=== PATIENT | female | born 1985 | race Caucasian/White ===

== ENCOUNTER 2016-11-30 17:00 | Inpatient (IN) | payer OTHER ==
--- NOTE | ~2016-11-30 | PA ---
Unit #: [id number] #: [id number] Patient: VANCE SHARPE [id number] [place] [address] [id number] I MR#: [id number] NAME: VANCE SHARPE ROOM: P131 Age: 31 Sex: F Admission Date: 11/30/2016 : 1985 Date of Assessment: 11/30/2016 Attending Physician: Lucero Ladd M.D. Admitting Physician: Lucero Ladd M.D. Primary Care Physician: Primary Care Physician No PSYCHIATRIC ASSESSMENT DATE OF SERVICE 11/30/2016. IDENTIFYING DATA Ms. Sharpe is a 31-year-old, single, white female, who is a resident of [place], [place], and was brought to the hospital in an acute psychotic and agitated state. CHIEF COMPLAINT "Somebody stole my medicines." HISTORY OF PRESENT ILLNESS Ms. Sharpe is a 31-year-old, single, white female with a history of mood disorder and substance abuse, who is known to me from previous encounter as she was active under my care back in 07/2015 and at that time it was also noted that she has been going and seeing Dr. Jaden Lundberg on an outpatient basis and has been getting a combination of Adderall and Klonopin and using these drugs from the street and had an acute psychotic break and was taken off all those medications and recommendation were made for the patient not to be prescribed those current medication due to her extensive substance abuse history and addictive potential of the medication leading to acute psychotic state. However, it appears that she has been going back to Dr. Lundberg again and has been back on those medications and has been on a cocktail of Klonopin, Adderall and Neurontin, and it was noticed that she takes excessive amount of Adderall, which was prescribed to her above and beyond the maximum, even though she does not have a job or school and she gets 60 mg of Adderall b.i.d. with a total of 120 mg of Adderall, which was quite high that I have seen in some time and she also gets Klonopin which she states she takes 2 mg of Klonopin 4 times a day with a total of 8 mg a day which is above and beyond what normally is prescribing probably and is effectively leading to patient's brain chemistry to be disturbed where she presented with acute psychotic and agitated state and was almost impossible to move her from that intake to the unit due to extreme paranoia and delusional behavior and code had to be called and she came into the unit, and I had to give her injection of Geodon and then again Benadryl to the extreme agitation and aggression and she still ended up in seclusion and later on restraints and was unable to carry on any meaningful conversation, appeared to be completely out of touch with reality and was giving me different stories that was not making sense including that her brother is running from police and he was staying at some friend's house and he called and asked for some food, and she was trying to deliver him some food and she saw a couple of men in her car and the phone lights were on and her brother was Unit #: [id number] #: [id number] Patient: VANCE SHARPE yelling her name and he approached the car and found out that they were stealing her medications and it appears that she has been carrying her pill bottles in the car; however, her story was completely out of touch with reality and she was seen to be agitated, aggressive, hostile, paranoid, delusional and as such, recommendation for inpatient level of care for safety and stabilization was made and the patient was transferred to us. SUBSTANCE ABUSE HISTORY The patient reports history of experimentation with benzodiazepines, meth and opioids. PAST PSYCHIATRIC HISTORY The patient has had a history of inpatient and outpatient psychiatric treatments, has been diagnosed and treated for bipolar disorder. Review of the medical records indicate that she was supposed to be on a combination of Prozac, Zyprexa and Wellbutrin, but also has been getting excessive amounts of Adderall and Klonopin from Dr. Lundberg on an outpatient basis. PAST MEDICAL HISTORY No acute or chronic medical illnesses. ALLERGIES No known medication allergies. PERSONAL AND SOCIAL HISTORY A 31-year-old white female, who reports that she is single, unemployed, and lives with different friends and family members and has fairly decent social support system. MENTAL STATUS EXAMINATION Young white female, who was casually dressed with fair personal hygiene, appears to be in no acute distress or discomfort. She was awake and alert on interaction with intact orientation to time, place, and person. Her mood was anxious and depressed with congruent affect. Her speech was slow and restricted in content. Her thought processes were disorganized with some looseness of associations and flight of ideas. Her insight and judgment remain significantly impaired. DIAGNOSTIC IMPRESSION Psychiatric: Bipolar disorder, most recent episode depressed, recurrent, moderate, without psychotic features; methamphetamine dependence, moderate; benzodiazepine dependence, moderate; opioid abuse, moderate. Medical: None. Stressors: Moderate psychosocial stressors. TREATMENT PLAN 1. The patient has presented with a history of substance abuse and mood disorder, and really concerned with Dr. Jaden Lundberg's prescription habit, particularly giving her 120 mg of Adderall which is really medically inappropriate, if not on the border or being unethical and then mixing it with benzodiazepine and giving a huge amount of benzodiazepine of Klonopin 2 mg q.i.d., which was just going to take away functional ability of the patient, not to mention that there is no point in mixing an upper with a downer and giving Adderall as a meth related compound to Unit #: [id number] #: [id number] Patient: VANCE SHARPE stimulate the brain and help someone be awake and alert and focus and concentrate believing that they have symptoms of ADHD and then at the same time, giving a downer, particularly a strong one, in the form of Klonopin and giving huge amount of q.i.d., which is going to act completely opposite to methamphetamine and it is effectively over messing up her brain chemistry and it appears that she is getting more pills that are controlled from the from a doctor than she can get it from a drug dealer and that she has been carrying them around and making statement that they are getting stolen and have a feeling that she might be getting the prescriptions run out filled before time and it has been leading to inpatient psychiatric hospitalization where she presented with acute psychotic and agitated state and then we have to clean up that mess of taking her off that huge amount of Klonopin and Adderall and once she is detoxed and cleaned, Dr. Jaden Lundberg will put her right back on those and it has been leading to very poor outcome and as such, we will document that we will be taking her off Adderall and Klonopin under medical supervision and making sure that she has a clean brain chemistry and she responds to her bipolar medications, particularly her Zyprexa, Wellbutrin and Prozac and we will strongly recommend that Dr. Jaden Lundberg should refrain from this habit of prescribing huge amounts of controlled substance, which has been detrimental to the patient's mental and physical health and is putting her and others in significant danger. 2. Supportive therapy was provided to the patient. ESTIMATED LENGTH OF STAY 5 to 7 days. ABILITY TO HELP SELF Limited. WILLINGNESS TO HELP SELF The patient appears to be willing to help self. STRENGTHS 1. Communicative. 2. Cooperative. PROBLEMS 1. Chronic dysphoric symptoms. 2. Poor social support system. DISCHARGE CRITERIA This will be contingent upon the patient's ability to show resolution of her depression and anxiety and her ability to stay safe to herself, particularly after discharge from the hospital. Dictated by... Gonzalo Mclaughlin/mert TD: 12/02/2016 02:57 JOB #: [id number] Unit #: [id number] #: [id number] Patient: VANCE SHARPE PSYCHIATRIC ASSESSMENT Page 1 of 1 X Lucero Ladd MD X PSYCHIATRIC ASSESSMENT
--- NOTE | ~2016-11-30 | PN ---
Unit #: [id number] #: [id number] Patient: VANCE SHARPE [id number] [facility] [address] [place] [address] [id number] I MR#: [id number] NAME: VANCE SHARPE ROOM: P131 Age: 31 Sex: F Admission Date: 11/30/2016 : 1985 Attending Physician: Lucero Ladd M.D. Admitting Physician: Lucero Ladd M.D. Primary Care Physician: Primary Care Physician Sweetie BERGER PROGRESS NOTES DATE December 01, 2016 DISCUSSION Ms. Sharpe is a 31-year-old white female, who was seen today and chart was reviewed and the case was discussed with the staff. She remains agitated and irritable, and had a very rough night last night, with hostility, delusional behavior, and psychosis, and ended up in seclusion restraints and p.r.n. injection was given, but she still has been wondering around in the hallway and has been demanding to leave and stating that she does not know why she is here, and continues to demand discharge. However, she appears to be fighting treatment and is worse at this time and as such the patient has been maintained along with her current level of precautions, and the patient has been encouraged to comply and participate in the treatment and activities and as such we are continuing to monitor her response to treatment and interventions and will make further adjustments as needed. Dictated by... Gonzalo Mclaughlin/wendy TD: 12/02/2016 11:00 JOB #: [id number] [facility] PROGRESS NOTES Page 1 of 1 X Lucero Ladd MD PROGRESS NOTE
--- NOTE | ~2016-11-30 | DS ---
Unit #: [id number] #: [id number] [facility]: [facility] [id number] [facility] [address] [place] [address] [id number] I MR#: [id number] NAME: VANCE SHARPE ROOM: P131 Age: 31 Sex: F Admission Date: 11/30/2016 : 1985 Discharge Date: 12/03/2016 Attending Physician: Lucero Ladd M.D. Primary Care Physician: Primary Care Physician No DISCHARGE SUMMARY IDENTIFYING DATA Ms. Sharpe is a 31-year-old single white female, who is a resident of [place], [place], and was brought to the hospital in acute psychotic and agitated state. DISCHARGE DIAGNOSES Psychiatric: Bipolar disorder, most recent episode depressed, recurrent, moderate, without psychotic features; methamphetamine dependence, moderate; benzodiazepine dependence, moderate; opioid dependence, moderate. Medical: None. Stressors: Moderate psychosocial stressors. HISTORY OF PRESENT ILLNESS Please see initial psychiatric evaluation for details. PAST PSYCHIATRIC HISTORY Please see initial psychiatric evaluation for details. PAST MEDICAL HISTORY Please see initial psychiatric evaluation for details. HOSPITAL COURSE The patient was admitted to the adult psychiatric unit at [facility] and was oriented to the hospital environment. Routine p.r.n. medications were initiated, and upon presentation, the patient was seen to be acutely psychotic, agitated, hostile, aggressive, and ended up in seclusion and restraints, p.r.n. medications were given, and the patient spent several hours in restraints; however, it was noticed that she once again has started going back to Dr. Jaden Lundberg who has started prescribing her Adderall and Klonopin, even though during previous hospitalization she was taken off that and was recommended that she should stay away from those drugs history of chemical dependency and she was having acute psychosis; however, it appears that she has been getting a huge amount of Adderall as she is getting 120 mg of Adderall day and on top of that, she has been getting 8 mg of Klonopin a day and as such, has been having affective disturbance in brain chemistry leading to acute psychosis and agitation and once again, Adderall and Klonopin were discontinued and Zyprexa and Prozac and Wellbutrin were maintained and she was closely monitored. She was able to calm down significantly and was on a 72 hours hold. Once that , she did not want to stay in the program and was denying any suicidal ideations, intent, or plan and therefore, it was decided that she will be discharged home and will continue treatment on an outpatient basis. Once again, strong recommendation will be made for the patient to either not to follow up Unit #: [id number] #: [id number] Patient: SHARPEVANCEORY with Dr. Jaden Lundberg or for him not to start prescribing those medications as they have led to affective decompensation and acute psychosis and agitation and the patient relapsing and acute psychosis and ending up in an acute psychiatric unit. However, I am not sure if Dr. Lundberg would stop giving her those medication as it has been atypical pattern of prescription habit, but that particular physician several patients coming to my care on both with similar cocktail of benzodiazepine and Adderall. DISCHARGE CONDITION Stable. PROGNOSIS Guarded. Dictated by... Gonzalo Mclaughlin/mert TD: 12/03/2016 07:10 JOB #: [id number] DISCHARGE SUMMARY Page 1 of 1 X Luecro Ladd MD X DISCHARGE SUMMARY
--- NOTE | ~2016-11-30 | PN ---
Unit #: [id number] #: [id number] Patient: VANCE SHARPE [id number] [facility] [address] [place] [address] [id number] I MR#: [id number] NAME: VANCE SHARPE ROOM: P131 Age: 31 Sex: F Admission Date: 11/30/2016 : 1985 Attending Physician: Lucero Ladd M.D. Admitting Physician: Lucero Ladd M.D. Primary Care Physician: Primary Care Physician Sweetie COTTO NOTES DATE OF SERVICE: 12/02/2016 SUBJECTIVE Ms. Sharpe is a 31-year-old white female with mood disorder and substance abuse, who was seen today and chart was reviewed and the case was discussed with the staff. She remains anxious, withdrawn, disorganized with bizarre behavior and thought blocking and paranoia. She stares and then unable to utter much words or sentences and then she shows some emotional instability and she had been screaming and cursing. Meanwhile, she has been taking the medications and tolerating them fairly well. MENTAL STATUS EXAMINATION Young white female who was casually dressed with fair personal hygiene, appears to be in no acute distress or discomfort. She was awake and alert with impaired attention and concentration. Her mood was anxious with a congruent affect. She denies any suicidal or homicidal ideations. Her insight and judgment remain slightly impaired. TREATMENT PLAN 1. We will continue her on her current medications and treatment protocol. We will monitor her response to the medications and make further adjustments as needed. 2. We will continue to follow up. Dictated by... Gonzalo Mclaughlin/mert TD: 12/02/2016 20:01 JOB #: [id number] Unit #: [id number] #: [id number] Patient: VANCE SHARPE [facility] PROGRESS NOTES Page 1 of 1 X Lucero Ladd MD PROGRESS NOTE
--- NOTE | ~2016-11-30 | HP ---
Unit #: [id number] #: [id number] Patient: VANCE LAZARO [id number] [place] [address] [id number] I MR#: [id number] NAME: VANCE LAZARO ROOM: P131 Age: 31 Sex: F Admission Date: 11/30/2016 : 1985 Attending Physician: Lucero Ladd M.D. Admitting Physician: Lucero Ladd M.D. Primary Care Physician: Primary Care Physician No HISTORY AND PHYSICAL HISTORY OF PRESENT ILLNESS The patient is a 31-year-old female admitted to [address] [place] [address] on 11/30/2016 for psychosis. PAST MEDICAL HISTORY The patient denies. PAST SURGICAL HISTORY times two. SOCIAL HISTORY She disabled. She smokes one to two packs of cigarettes per day. She has a history of polysubstance abuse but none in six months. FAMILY MEDICAL HISTORY Noncontributory. ALLERGIES No known drug allergies. CURRENT MEDICATIONS Prozac, Zyprexa, Wellbutrin, Adderall, Neurontin and clonazepam. REVIEW OF SYSTEMS CONSTITUTIONAL: No fever or chills. HEENT: Denies any sore throat, ear pain or runny nose. CARDIOVASCULAR: Denies chest pain, irregular heart rhythm or palpitations. CHEST: Denies shortness of breath or cough. No hemoptysis. GASTROINTESTINAL: Denies nausea, vomiting, diarrhea or chronic constipation. ENDOCRINE: Denies history of increased thirst or urination. No recent significant weight loss or gain. GENITOURINARY: Denies dysuria, frequency, or hematuria. SKIN: Denies any rashes. HEMATOLOGIC: Denies history of increased bleeding or bruising. MUSCULOSKELETAL: Denies any hot, swollen joints. No generalized muscle pain. NEUROLOGIC: Denies problems with vision or speech. No frequent, severe headaches. No numbness, tingling or weakness in any extremities. Denies loss of bladder or bowel control. PHYSICAL EXAM Unit #: [id number] #: [id number] Patient: VANCE LAZARO GENERAL: She is awake, alert and oriented in no acute distress. VITAL SIGNS: Temperature 97.5, heart rate 100, respiration 16, blood pressure 108/66. HEIGHT: 5'3". WEIGHT: 120 pounds. I was unable to complete the rest of the physical exam because when I went to start the exam the patient ran down the hallway. IMPRESSION 1. Psychiatric admission. 2. Nicotine dependence. RECOMMENDATIONS Psychiatric per psychiatrist. MEDICAL: No contraindication to participate in facility activities. MEDICAL PROGNOSIS Good. MEDICAL CONDITION Stable. Dictated by... Lit Ambrocio/ashlee TD: 12/02/2016 02:23 JOB #: [id number] HISTORY AND PHYSICAL Page 1 of 1 X AWILDA RODRIGUEZ APRN X HISTORY AND PHYSICAL
== END 2016-12-03 11:40 | DRG 885 ==
LOC: P1S 17:46
DX: F31.32 Bipolar disorder, current episode depressed, moderate (principal); F13.20 Sedative, hypnotic or anxiolytic dependence, uncomplicated; F15.20 Other stimulant dependence, uncomplicated; F11.10 Opioid abuse, uncomplicated; F17.210 Nicotine dependence, cigarettes, uncomplicated
CPT/HCPCS: J1200; J3486

== ENCOUNTER 2017-01-10 14:54 | Inpatient (IN) | payer OTHER ==
[~2017-01-10] VITALS: Ht 165.1 cm; Wt 59.9 kg
--- NOTE | ~2017-01-10 | HP ---
Unit #: [id number] #: [id number] Patient: VANCE LAZARO [id number] [place] [address] [id number] I MR#: [id number] NAME: VANCE LAZARO ROOM: P254 Age: 31 Sex: F Admission Date: 01/10/2017 : 1985 Attending Physician: Lucero Ladd M.D. Admitting Physician: Lucero Ladd M.D. Primary Care Physician: Generic Doctor Not In System HISTORY AND PHYSICAL HISTORY OF PRESENT ILLNESS The patient is a 31-year-old female admitted to [address] [place] [address] on 01/10/2017 for psychosis. PAST MEDICAL HISTORY Degenerative disk disease. PAST SURGICAL HISTORY C-sections x2. SOCIAL HISTORY She is unemployed. She is disabled. She lives with her fiance. Denies alcohol, tobacco, and drug use. FAMILY MEDICAL HISTORY Noncontributory. ALLERGIES No known drug allergies. CURRENT MEDICATIONS Zyprexa, Wellbutrin, Prozac, Klonopin, Adderall, Neurontin, and Trileptal. REVIEW OF SYSTEMS CONSTITUTIONAL: No fever or chills. HEENT: Denies any sore throat, ear pain or runny nose. CARDIOVASCULAR: Denies chest pain, irregular heart rhythm or palpitations. CHEST: Denies shortness of breath or cough. No hemoptysis. GASTROINTESTINAL: Denies nausea, vomiting, diarrhea or chronic constipation. ENDOCRINE: Denies history of increased thirst or urination. No recent significant weight loss or gain. GENITOURINARY: Denies dysuria, frequency, or hematuria. SKIN: Denies any rashes. HEMATOLOGIC: Denies history of increased bleeding or bruising. MUSCULOSKELETAL: Denies any hot, swollen joints. No generalized muscle pain. NEUROLOGIC: Denies problems with vision or speech. No frequent, severe headaches. No numbness, tingling or weakness in any extremities. Denies loss of bladder or bowel control. PHYSICAL EXAMINATION GENERAL: She is awake, alert, and oriented in no acute distress. Unit #: [id number] #: [id number] Patient: VANCE LAZARO VITAL SIGNS: Temperature 99.0, heart rate 91, respirations 18, blood pressure 115/71. HEIGHT: 5 feet 5. WEIGHT: 132 pounds. SKIN: Warm and dry without rash or lesion. HEENT: Normocephalic. TMs not viewed. Oral and nasal passages clear. Conjunctivae clear. PERRLA. EOMs intact. NECK: Supple without lymphadenopathy or thyromegaly. HEART: Regular rate and rhythm without murmur. LUNGS: Clear. ABDOMEN: Soft, nontender. : Not done. EXTREMITIES: No evidence of cyanosis, clubbing or edema. Moves all without focal deficit. NEUROLOGICAL: Grossly within normal limits. Cranial Nerves: II: Visual navarrete are intact. III, IV AND : Extraocular movements are intact. Pupils are equal, round and reactive to light. V: Facial sensation is grossly normal. VII: Facial movements and expression are normal. VIII: Auditory acuity grossly intact. IX, X: Uvula is midline. Phonation is normal. XI: Patient shrugs shoulders and turns head normally. XII: Tongue protrudes in the midline. Sensory and Motor Function: Sensory and motor sensation is grossly normal. Motor: moves all extremities well. IMPRESSION 1. Psychiatric admission. 2. Degenerative disk disease. RECOMMENDATIONS PSYCHIATRIC: Per psychiatrist. MEDICAL: No contraindication to participate in this facility activities. MEDICAL PROGNOSIS Good. MEDICAL CONDITION Stable. Dictated by... Lit Ambrocio TD: 01/11/2017 16:00 JOB #: [id number] Unit #: [id number] #: [id number] Patient: PAT LAZAROI BUSTER HISTORY AND PHYSICAL Page 1 of 1 X AWILDA RODRIGUEZ APRN HISTORY AND PHYSICAL
--- NOTE | ~2017-01-10 | DS ---
Unit #: [id number] #: [id number] [facility] [id number] [facility] [address] [place] [address] [id number] I MR#: [id number] NAME: VANCE SHARPE ROOM: P254 Age: 31 Sex: F Admission Date: 01/10/2017 : 1985 Discharge Date: 01/14/2017 Attending Physician: Lucero Ladd M.D. Primary Care Physician: Generic Doctor Not In System DISCHARGE SUMMARY IDENTIFYING DATA Ms. Sharpe is a 31-year-old single white female, who is a resident of [place], [place], and is known to us from previous encounter, was transferred to us from [facility]. DISCHARGE DIAGNOSES Psychiatric: Bipolar disorder, most recent episode depressed, recurrent, moderate, with psychosis; benzodiazepine abuse, moderate; amphetamine abuse, moderate. Medical: None. Stressors: Moderate psychosocial stressors. HISTORY OF PRESENT ILLNESS Please see initial psychiatric evaluation for details. PAST PSYCHIATRIC HISTORY Please see initial psychiatric evaluation for details. PAST MEDICAL HISTORY Please see initial psychiatric evaluation for details. HOSPITAL COURSE The patient was admitted to the adult psychiatric unit at [facility] and was oriented to the hospital environment. Routine p.r.n. medications were initiated, and she was started back on her home medications and Wellbutrin and Zyprexa were maintained for depressive symptoms and she was closely monitored. She was taking the medications regularly and was tolerating them fairly well and was able to show a decent and therapeutic response with improvement in depression and anxiety and was willing to continue treatment on an outpatient basis and as such, it was decided that she will be discharged home and will continue treatment on an outpatient basis. DISCHARGE MEDICATIONS Trileptal 300 mg b.i.d. for bipolar, Wellbutrin XL 300 mg in the morning for depression, Zyprexa 20 mg a day for bipolar. DISCHARGE CONDITION Stable. PROGNOSIS Fair. Unit #: [id number] #: [id number] Patient: VANCE SHARPE Dictated by... Gonzalo Mclaughlin/martinl TD: 01/14/2017 08:28 JOB #: [id number] DISCHARGE SUMMARY Page 1 of 1 X Lucero Ladd MD DISCHARGE SUMMARY
--- NOTE | ~2017-01-10 | PA ---
Unit #: [id number] #: [id number] Patient: VANCE SHARPE [id number] [facility] [address] [place] [address] [id number] I MR#: [id number] NAME: VANCE SHARPE ROOM: P254 Age: 31 Sex: F Admission Date: 01/10/2017 : 1985 Date of Assessment: 01/11/2017 Attending Physician: Lucero Ladd M.D. Admitting Physician: Lucero Ladd M.D. Primary Care Physician: Generic Doctor Not In System PSYCHIATRIC ASSESSMENT DATE OF SERVICE 01/11/2017. IDENTIFYING DATA Ms. Sharpe is a 31-year-old, single, white female who is a resident of [place], [place], and is known to me from previous encounter, and was self-referred to the hospital as a transfer from [facility] Emergency [facility]. CHIEF COMPLAINT "I had an episode." HISTORY OF PRESENT ILLNESS Ms. Sharpe is a 31-year-old white female who is referred to [facility] by her humane officer and the patient states that she took her prescribed medication today, but not all of it, which caused her to become paranoid and she states that she had an appointment with humane officer and upon arrival to the , the patient had an episode which included her becoming confused, paranoid, disoriented and as the result, the patient was transported to [facility] with humane officer to be evaluated and the patient stated that she took some of her medication today, but not all of it and she stated that she missed a few days of medications which caused her to feel confused. The patient stated that the [facility] has since given her some medication while in the hospital that has assisted her in coming down and the patient reports that she feels better and wants to just go home because she just does not like the hospital and she also stated that she does not want to go to [facility] because she had a manic episode there during her last stay and the patient stated the staff will also hold you down if you do not do what they say and the patient stated that the people estranged. She does not want to go back. immigration officer stated the patient appeared at the office confused and had a meltdown episode to which they brought her to the hospital and that she stated that her railroad supervisor of engines does not want her to go to [facility]. The patient stated she does not like it and had a really bad experience there and she further asked if [facility] could assist her being transported to [facility], however, [facility] could not complete the assessment and as such, she was then transferred to us. SUBSTANCE ABUSE HISTORY The patient denies any current alcohol or drug abuse. PAST PSYCHIATRIC HISTORY The patient has had history of inpatient psychiatric hospitalization at Unit #: [id number] #: [id number] Patient: VANCE SHARPE [facility] and has been diagnosed and treated for mood disorder, and is supposed to be on Zyprexa and Wellbutrin, but appears that she has been going to Dr. Jaden Lundberg and has been getting prescriptions of Klonopin and Adderall which she was taken off during her previous hospitalization because she was on unrealistic amount of Klonopin and Adderall as she was getting 2 mg of Klonopin q.i.d. and 60 mg of Adderall b.i.d. and we had significant concern about her dose of medications and how they are effectively disturbing her mental status and she was taken off, but it appears that she has since then started taking her medication again and as such, has had another episode of mental status changes. PAST MEDICAL HISTORY No acute or chronic medical illnesses. ALLERGIES No known medication allergies. PERSONAL AND SOCIAL HISTORY A 31-year-old white female who reports that she is single, unemployed, and lives with her fiance and has poor social support system. MENTAL STATUS EXAMINATION Young white female who was casually dressed with fair personal hygiene, appears to be in no acute distress or discomfort. She was awake and alert on interaction with intact orientation to time, place, and person. Her mood was anxious and depressed with a congruent affect. Her speech was slow and tangential. Her thought processes were disorganized with some looseness of associations and flight of ideas. Her insight and judgment remain significantly impaired. DIAGNOSTIC IMPRESSION Psychiatric: Bipolar disorder, most recent episode depressed, recurrent, moderate, with psychosis; benzodiazepine abuse, moderate; amphetamine abuse, moderate. Medical: None. Stressors: Moderate psychosocial stressors. TREATMENT PLAN 1. The patient has presented with history of substance abuse and mood disorder, and has been decompensating and will need inpatient hospitalization for safety and stabilization. We will start her back on her home medications. We will adjust the medications and monitor response. 2. Supportive therapy was provided to the patient. 3. Safe, structured, and nourishing environment will be provided. ESTIMATED LENGTH OF STAY 4 to 5 days. ABILITY TO HELP SELF Limited. WILLINGNESS TO HELP SELF The patient appears to be willing to help self. STRENGTHS 1. Communicative. 2. Cooperative. PROBLEMS Unit #: [id number] #: [id number] Patient: VANCE SHARPE 1. Chronic dysphoric symptoms. 2. Poor social support system. DISCHARGE CRITERIA This will be contingent upon the patient's ability to show resolution of her depression and anxiety, and her ability to stay safe to herself, particularly after discharge from the hospital. Dictated by... Lucero Ladd M.D. PEPE/mert TD: 01/11/2017 11:39 JOB #: [id number] PSYCHIATRIC ASSESSMENT Page 1 of 1 X Lucero Ladd MD PSYCHIATRIC ASSESSMENT
--- NOTE | ~2017-01-10 | PN ---
Unit #: [id number] #: [id number] Patient: VANCE SHARPE [id number] [facility] [address] [place] [address] [id number] I MR#: [id number] NAME: VANCE SHARPE ROOM: P254 Age: 31 Sex: F Admission Date: 01/10/2017 : 1985 Attending Physician: Lucero Ladd M.D. Admitting Physician: Lucero Ladd M.D. Primary Care Physician: Generic Doctor Not In System [facility] PROGRESS NOTES DATE January 12, 2017 DISCUSSION Ms. Sharpe is a 31-year-old white female, who was seen today and chart was reviewed and the case was discussed with the staff. She has been anxious, withdrawn, and rather seclusive to herself. Meanwhile, she has been lying in her bed and has not been coming out socializing or interacting very much. Meanwhile, she has been taking the medications and tolerating them fairly well with no reported side effects. MENTAL STATUS EXAMINATION Young white female, who was casually dressed with fair personal hygiene and appears to be in no acute distress or discomfort. She was awake and alert on interaction with intact orientation. Her mood is anxious with a congruent affect. Speech is slow and goal-directed. The patient denies any suicidal or homicidal ideations. and also denies any auditory or visual hallucinations. Her insight and judgment remain slightly impaired. TREATMENT PLAN 1. We will continue her on her current medications and treatment protocol, and will monitor her response to the medications, and make further adjustments as needed. 2. We will continue to followup. Dictated by... Gonzalo Mclaughlin/wendy TD: 01/13/2017 09:42 JOB #: [id number] Unit #: [id number] #: [id number] Patient: VANCE SHARPE [facility] PROGRESS NOTES Page 1 of 1 X Lucero Ladd MD PROGRESS NOTE
--- NOTE | ~2017-01-10 | PN ---
Unit #: [id number] #: [id number] Patient: VANCE SHARPE [id number] [facility] [address] [place] [address] [id number] MR#: [id number] NAME: VANCE SHARPE ROOM: P254 Age: 31 Sex: F Admission Date: 01/10/2017 : 1985 Attending Physician: Lucero Ladd M.D. Admitting Physician: Lucero Ladd M.D. Primary Care Physician: Generic Doctor Not In System [facility] PROGRESS NOTES DATE January 13, 2017 DISCUSSION Ms. Sharpe is a 31-year-old white female, who was seen today and chart was reviewed and the case was discussed with the staff. The patient has been anxious, withdrawn, and rather seclusive to herself. Meanwhile, she has been cooperative with the treatment recommendations and has been taking the medications and tolerating them fairly well with no reported side effects. MENTAL STATUS EXAMINATION Young white female, who was casually dressed with fair personal hygiene and appears to be in no acute distress or discomfort. She was awake and alert on interaction with intact orientation. Her mood was anxious with a congruent affect. She denies any suicidal or homicidal ideations. Her insight and judgment remain slightly impaired. TREATMENT PLAN 1. We will continue her on her current medications and treatment protocol, and will monitor her response to the medications, and make further adjustments as needed. 2. We will continue to followup. Dictated by... Gonzalo Mclaughlin/wendy TD: 01/14/2017 08:29 JOB #: [id number] Unit #: [id number] #: [id number] Patient: VANCE SHARPE [facility] PROGRESS NOTES Page 1 of 1 X Lucero Ladd MD PROGRESS NOTE
[2017-01-11 12:08] LABS: URINE APPEARANCE CLOUDY; URINE BILIRUBIN NEG (NEG); URINE BLOOD NEG (NEG); URINE COLOR YELLOW; URINE GLUCOSE NEG (NEG); URINE KETONE NEG (NEG); URINE LEUKOCYTE ESTERASE 1+ (NEG); URINE NITRATE NEG (NEG); URINE PH 7.5 (5-8); URINE PROTEIN NEG (NEG); URINE SPECIFIC GRAVITY 1.013 (1.003-1.035); URINE UROBILINOGEN 0.2 MG/DL (NEG)
[2017-01-11 12:11] LABS: URINE BACTERIA AUWI 4+ (NEGATIVE); URINE SQUAMOUS EPITHELIAL CELL OCC /[HPF]; UWBCS1 AUWI 25-50 (0-5)
[2017-01-12 10:52] LABS: BASOPHIL% 0.3 % (0-2.5); EOSINOPHIL# 0.4 X10e3 (0-0.7); HEMATOCRIT 38.3 % (35.0-45.0); LYMPHOCYTE# 1.8 X10e3 (1.0-3.5); MEAN CELL VOLUME 85.7 FL (83-96); MEAN CORPUSCULAR HEMOGLOBIN 29.2 PG (28-34); MEAN CORPUSCULAR HGB CONC 34.1 g/dL (30-36); MEAN PLATELET VOLUME 7.9 FL (6.5-11.5); MONOCYTE# 0.6 X10e3 (0-1.0); MONOCYTE% 5.7 % (3.0-12.0); NEUTROPHIL# 7.9 X10e3 (1.5-7.1); PLATELET COUNT 322 X10e3 (140-420); RED BLOOD COUNT 4.47 X10e (3.90-5.30); RED CELL DISTRIBUTION WIDTH 13.4 % (11.0-15.5); WHITE BLOOD COUNT 10.8 X10e3 (4.0-10.5)
[2017-01-12 10:53] LABS: DIFF IND NO
[2017-01-12 11:20] LABS: ALBUMIN SERUM 3.9 g/dL (3.5-5.0); BILIRUBIN,TOTAL 0.6 mg/dL (0.2-2.0); CALCIUM SERUM 8.9 mg/dL (8.4-10.2); CREATININE SERUM 0.6 mg/dL (0.6-1.4); GLOM FILT RATE Estimated 123.2 mL/min (>60); POTASSIUM 4.7 mmol/L (3.5-5.1); PROTEIN TOTAL SERUM 6.6 g/dL (6.0-8.3)
== END 2017-01-14 11:00 | disposition home or self-care (01) | DRG 885 ==
LOC: P2L 22:38
PROVIDERS: Psychiatry & Neurology Psychiatry
DX: F33.1 Major depressive disorder, recurrent, moderate (principal); F29 Unspecified psychosis not due to a substance or known physiological condition; F13.10 Sedative, hypnotic or anxiolytic abuse, uncomplicated; F15.10 Other stimulant abuse, uncomplicated; F41.9 Anxiety disorder, unspecified; Z56.0 Unemployment, unspecified
CPT/HCPCS: 80053; 81003; 84703; 85025